=== PATIENT | female | born 1985 | race Hispanic/Latino ===

== ENCOUNTER 2024-07-01 20:24 | Emergency (ER) | payer BC ==
[2024-07-01] MEDS ORDERED: ONDANSETRON 4 MG/2 ML VIAL ONE (21:44)
[2024-07-01] MEDS ORDERED: MORPHINE 4 MG/ML SYR ONE (21:45)
[2024-07-01] MEDS ORDERED: NA CHLORIDE 0.9% 1,000 ML ONE (21:45)
[2024-07-01] MEDS ORDERED: KETOROLAC 30 MG/ML INJ ONE (21:45)
[2024-07-01 21:46] LABS: Absolute Basophils 0.1 K/uL (0-0.5); Absolute Eosinophils 0.2 K/uL (0-0.5); Absolute Lymphocytes (CBC) 2.1 K/uL (0.7-4.9); Absolute Monocytes 0.6 K/uL (0.1-1.3); Absolute Neutrophil 7.7 K/uL (1.8-8.0); Basophils % 1.3 % (0-1.3); Eosinophils % 1.8 % (0-4.4); Hematocrit 37.8 % (36.0-45.0); Lymphocytes % 19.3 % (15.3-44.8); MCH 31.1 pg (27.0-35.0); MCHC 34.4 g/dL (32.0-36.0); MCV 90.4 fL (80-100); MPV 7.8 fL (7.6-11.3); Monocytes % 5.6 % (3.3-12.3); Nucleated Red Blood Cells % 0.1 % (0-0); Platelets 310 thou/uL (152-406); RBC Red Blood Cell Count 4.19 M/uL (3.86-4.86); Red Cell Distribution Width 13.9 % (12.1-15.2)
[2024-07-01 22:00] LABS: Specific Gravity 1.009 (1.005-1.030)
[2024-07-01 22:01] LABS: Specific Gravity 1.009 (1.005-1.030); Sqamous Epithelial <5 /HPF (None Seen); Urine Bacteria <20 /HPF (<20); Urine Bilirubin NEGATIVE (Negative); Urine Blood Negative (Negative); Urine Clarity Turbid (Clear); Urine Color Colorless (Yellow); Urine Crystals Unidentified Few /HPF (None Seen); Urine Culture Reflex Order NOT NEEDED; Urine Glucose NEGATIVE (Negative); Urine Ketones NEGATIVE (Negative); Urine Micro Reflex YN NO BILL MICROSCOPIC; Urine Nitrite NEGATIVE (Negative); Urine Protein NEGATIVE (Negative); Urine RBC <5 /HPF (None Seen); Urine Urobilinogen Normal (Normal); Urine WBC <5 /HPF (<5); Urine WBC Clump Rare /HPF (None Seen); Urine Yeast (Budding) Trace /HPF (None Seen)
[2024-07-01 22:03] LABS: Albumin 3.4 g/dL (3.4-5.0); Albumin/Globulin Ratio 0.8 (1.1-1.8); Anion Gap 11.7 mEq/L (5.0-15.0); Bilirubin Total 0.3 mg/dL (0.2-1.0); Globulin 4.1 g/dL (2.3-3.5); Potassium 3.7 mEq/L (3.5-5.1); Protein, Total 7.5 g/dL (6.4-8.2)
--- NOTE | 2024-07-02 00:03 | RAD REPORT ---
EXAM: CT ABDOMEN AND PELVIS WITH CONTRAST DATE: 07/01/2024 9:38 PM FIRE OFFICER INDICATION: 38-year-old female with abdominal pain. COMPARISON: None. TECHNIQUE: CT of the abdomen and pelvis acquired following the intravenous administration of contrast . Please see technologist documentation of contrast type and dosage. Axial, coronal and sagittal images are provided. The study was performed using dose reduction techniques including automated expo sure control and/or adjustment of the MA and/or KV according to patient size, and/or iterative reconstruction techniques. DLP: 1163.8. CTDI: 20.084. FINDINGS: Lower thorax: No consolidation or pleural effusion. Partially visualized heart is normal in size. Liver, spleen, pancreas, adrenals: No acute lesion. Biliary tree: No intra- or extrahepatic bile duct dilation. Gallbladder: No calcified cholelithiasis or pericholecystic inflammation. Kidneys and ureters: 2 mm left renal interpolar region minor calyceal nonobstructing calculus. No lef t ureterolithiasis, right urolithiasis, or hydroureteronephrosis. Bladder/reproductive organs: Urinary bladder is partially decompressed. Retroverted uterus in situ. 2 .6 cm left ovarian cyst. No follow-up imaging is recommended. Reference: JACR 2019;17(2):248-254 Gastrointestinal tract: Lower esophagus/stomach/small bowel: Stomach is partially decompressed, limiting evaluation. No small bowel obstruction. Colon: Scattered colonic diverticula. Scattered nonspecific circumferential colonic mural thickening, with distal descending paracolic edematous and/or inflammatory stranding and small amount of left paracolic gutter fluid, which can be seen with acute diverticulitis. No abscess or bowel obstruction. Additional nonspecific mural thickening can be seen with colitis and inadequate distention. Mild to moderate retained colonic stool. Appendix: Normal diameter partially gas-filled appendix. Peritoneum, mesentery and retroperitoneum: No pneumoperitoneum or loculated fluid. Small amount of le ft paracolic gutter fluid and distal descending paracolic edematous and/or inflammatory stranding. Lymph nodes: Scattered subcentimeter in short axis dimension mesenteric, retroperitoneal, bilateral i nguinal lymph nodes. Vasculature: Aorta and branches: Aorta has a normal diameter. IVC and veins: IVC has a normal diameter. Incidental 3 mm right hemipelvic calcified phlebolith. Bones: Degenerative changes, including mild multilevel spondylosis. Bilateral L5 spondylolysis. Soft tissues: Very small umbilical hernia containing adipose tissue. IMPRESSION: 1. Acute distal descending colonic diverticulitis, with nonspecific mural thickening, paracolic gerard matous and/or inflammatory stranding, a small amount of left paracolic gutter fluid. Additional colonic diverticulosis and nonspecific colonic mural thickening. Correlation with nonemergent colonos copy suggested when the patient is beyond the acute episode. 2. Nonobstructing left nephrolithiasis. 3. Left ovarian 2.6 cm cyst. No follow-up imaging is recommended. 4. Additional incidental findings as discussed. Electronically signed by: Lexa Brandt MD 07/01/2024 11:31 PM [facility] Due to temporary technical issues with the [employer] reporting system, reports are being odessa d by the in-house radiologist without review as a courtesy to ensure prompt reporting the interpreting radiologist is fully responsible for the content of the report. Transcribed Date/Time: 07/02/2024 12:02 AM
[2024-07-02] MEDS ORDERED: CEFTRIAXONE 1000 MG/VIAL ONE (02:12)
[2024-07-02] MEDS ORDERED: CEPHALEXIN 250 MG CAP ONE (02:12)
[2024-07-02] MEDS ORDERED: metroNIDAZOLE 500 MG TABLET ONE (02:13)
[2024-07-02] MEDS ORDERED: NA CHLORIDE 0.9% 50 ML ONE (02:13)
[2024-07-02] MEDS ORDERED: IBUPROFEN 200 MG TAB PO ONE (02:25)
[2024-07-02] MEDS ORDERED: HYDROCODONE/APAP 5/325 MG TAB ONE (02:25)
--- NOTE | 2024-07-02 03:11 | EDPHYS ---
Physician Documentation [facility] Name: Gi Finn Age: 38 yrs Sex: Female : 1985 Arrival Date: 07/01/2024 Time: 20:24 Bed 6 Private MD: ED Physician Trey Do HPI: 07/01 20:42 This 38 yrs old Female presents to ER via Unassigned with complaints of sp4 Abdominal Pain, Left side abd pain. 07/02 21:32 Patient presents with left lower abdominal pain similar to prior episode of sp4 diverticulitis. Denies fever or vomiting.. 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 - Infectious Disease History:: Denies. - Social history:: Smoking status: Patient denies any tobacco usage or history of. Patient/guardian denies using alcohol, street drugs, IV drugs. - Family history:: not pertinent. ROS: 07/02 21:32 Constitutional: Negative for fever, chills, and weight loss, positive for left lower sp4 abdominal pain All other systems are negative, Exam: 21:32 Constitutional: This is a well developed, well nourished patient who is awake, alert, sp4 and in no acute distress. Head/Face: Normocephalic, atraumatic. Eyes: Pupils equal round and reactive to light, extra-ocular motions intact. Lids and lashes normal. Conjunctiva and sclera are not injected. Cornea within normal limits. Periorbital areas with no swelling, redness, or edema. ENT: Nares patent. No nasal discharge, no septal abnormalities noted. Tympanic membranes are normal and external auditory canals are clear. Oropharynx with no redness, swelling, or masses, exudates, or evidence of obstruction, uvula midline. Mucous membranes moist. Neck: Trachea midline, no thyromegaly or masses palpated, and no cervical lymphadenopathy. Supple, full range of motion without nuchal rigidity, or vertebral point tenderness. Chest/axilla: Normal chest wall appearance and motion. Nontender with no deformity. No lesions are appreciated. Cardiovascular: Regular rate and rhythm with a normal S1 and S2. No gallops, murmurs, or rubs. Normal PMI, no JVD. No pulse deficits. Respiratory: Lungs have equal breath sounds bilaterally, clear to auscultation and percussion. No rales, rhonchi or wheezes noted. No increased work of breathing, no retractions or nasal flaring. Abdomen/GI: Soft, with normal bowel sounds. No distension or tympany. No guarding or rebound. Positive left lower abdominal tenderness. Back: No spinal tenderness. No costovertebral tenderness. Skin: Warm, dry with normal turgor. Normal color with no rashes, no lesions, and no evidence of cellulitis. MS/ Extremity: Pulses equal, no cyanosis. Neurovascular intact. Full, normal range of motion. Neuro: Awake and alert, GCS 15, oriented to person, place, time, and situation. Cranial nerves II-XII grossly intact. Motor strength 5/5 in all extremities. Sensory grossly intact. Psych: Awake, alert, with orientation to person, place and time. Behavior, mood, and affect are within normal limits Vital Signs: 07/01 20:45 BP 142 / 99; Pulse 96; Resp 17; Temp 97.9; Pulse Ox 100% ; Weight 81.65 kg; Height 5 jj7 ft. 4 in. ; Pain 7/10; 21:55 BP 115 / 81; Pulse 102; Resp 14; Pulse Ox 100% ; vc1 07/02 00:00 BP 109 / 72; Pulse 91; Resp 15; Pulse Ox 99% ; vc1 01:00 BP 106 / 72; Pulse 91; Resp 15; Pulse Ox 98% ; vc1 02:00 BP 104 / 69; Pulse 92; Resp 16; Pulse Ox 98% ; vc1 03:43 BP 100 / 69; Pulse 86; Resp 14; Pulse Ox 97% ; vc1 07/01 20:45 Body Mass Index 30.90 (81.65 kg, 162.56 cm) [facility] 07/01 20:45 Pain Scale: Adult [facility] Brian Coma Score: 21:32 Eye Response: spontaneous(4). Motor Response: obeys commands(6). Verbal Response: sp4 oriented(5). Total: 15. MDM: 07/01 20:44 Medical Screening Exam initiated sp4 07/02 21:32 Differential diagnosis: diverticulitis, Dysmenorrhea, Endometriosis, gastritis. Data sp4 reviewed: vital signs, nurses notes, old medical records, lab test result(s), radiologic studies, CT scan. Consideration of Admission/Observation Escalation of care including admission/observation considered. ED course: CT revealed signs of diverticulitis without perforation or abscess. Patient stable for discharge home with 10-day course of antibiotics.. 07/01 20:44 Order name: Test, Urine; Complete Time: 02:00 sp4 07/01 20:44 Order name: Urinalysis W/Microscopic; Complete Time: 02:00 sp4 07/01 21:30 Order name: CBC with Diff; Complete Time: 02:00 sp4 07/01 21:30 Order name: CMP; Complete Time: 02:00 sp4 07/01 21:30 Order name: Lipase; Complete Time: 02:00 sp4 07/01 21:38 Order name: CT Abd/Pelvis - IV Contrast Only; Complete Time: 02:00 sp4 07/01 21:30 Order name: IV Saline Lock; Complete Time: 21:42 sp4 07/01 21:30 Order name: Labs collected and sent; Complete Time: 21:42 sp4 Administered Medications: 07/01 21:55 Drug: morphine IVP or IV 4 mg IVP once over 4 mins Route: IVP; Infused Over: 4 mins; vc1 Site: right antecubital; 22:15 Follow up: Response: No adverse reaction; Marked relief of symptoms vc1 21:55 Drug: Ketorolac IVP 30 mg IVP once Route: IVP; Site: right antecubital; vc1 22:15 Follow up: Response: No adverse reaction; Marked relief of symptoms; Pain is decreased vc1 21:55 Drug: Ondansetron IVP 4 mg IVP once; over 2 minutes Route: IVP; Site: right antecubital;vc1 07/02 02:27 Follow up: Response: No adverse reaction; Marked relief of symptoms vc1 07/01 21:55 Drug: NS 0.9% IV 1000 ml IV at 1 bolus Per protocol; to be given as a bolus over 60 vc1 minutes Route: IV; Rate: 1 bolus; Site: right antecubital; 22:55 Follow up: IV Status: Completed infusion; IV Intake: 1000ml vc1 07/02 02:20 Drug: Rocephin - Rocephin (cefTRIAXone) IVPB 1 grams IVPB once over 30 mins; (mix in 50 vc1 mL NS) Route: IVPB; Infused Over: 30 mins; Site: right antecubital; 02:50 Follow up: IV Status: Completed infusion; IV Intake: 50ml vc1 02:20 Drug: metroNIDAZOLE PO 500 mg PO once Route: PO; vc1 03:46 Follow up: Response: No adverse reaction vc1 02:27 Drug: HYDROcodone-acetaminophen PO 5 mg-325 mg 2 tabs PO once Route: PO; vc1 03:46 Follow up: Response: No adverse reaction; Marked relief of symptoms; Pain is decreased vc1 02:27 Drug: Ibuprofen PO 600 mg PO once Route: PO; vc1 03:46 Follow up: Response: No adverse reaction; Marked relief of symptoms; Pain is decreased vc1 02:30 Drug: Cephalexin PO 500 mg PO once Route: PO; vc1 03:00 Follow up: Response: No adverse reaction vc1 Disposition: 21:35 Chart complete. sp4 Disposition Summary: 07/02/24 03:10 Discharge Ordered Notes: Location: Home sp4 Problem: new sp4 Symptoms: have improved sp4 Condition: Stable sp4 Diagnosis - Diverticulitis of large intestine without perforation or abscess without bleeding sp4 - Acute diverticulitis of descending colon sp4 Followup: sp4 - With: Curtis Iglesias MD - When: 7 - 10 days - Reason: Recheck today's complaints Discharge Instructions: - Discharge Summary Sheet sp4 - Diverticulitis, Ingj[place] sp4 Forms: - Patient Portal Instructions sp4 Prescriptions: - Cephalexin 500 mg Oral capsule - take 1 capsule ORAL route every 8 hours for 10 days; 30 capsule; Refills: 0, sp4 Product Selection Permitted - Flagyl 500 mg Oral Tablet - take 1 tablet ORAL route every 8 hours for 10 days; 30 tablet; Refills: 0, sp4 Product Selection Permitted - Ibuprofen 800 mg Oral Tablet - take 1 tablet ORAL route every 8 hours As needed take with food; 30 tablet; sp4 Refills: 0, Product Selection Permitted - Tramadol 50 mg Oral tablet - take 1 tablet ORAL route every 8 hours as needed; 30 tablet; Refills: 0, sp4 Product Selection Permitted - ondansetron 8 mg Oral Tablet,disintegrating - take 1 tablet ORAL route every 8 hours PRN nausea; 30 tablet; Refills: 0, sp4 Product Selection Permitted Signatures: Dispatcher [employer] EDMS Maribel Charles RN RN vc1 Kelsie Duran RN RN jj7 Trey Do MD MD sp4 Corrections: (The following items were deleted from the chart) 07/01 21:39 21:39 Abdomen Pelvis W [id number].RAD.BRZ ordered. EDTX EDMS
--- NOTE | 2024-07-02 03:11 | ER ---
Nurse's Notes [facility] Name: Gi Finn Age: 38 yrs Sex: Female : 1985 Arrival Date: 07/01/2024 Time: 20:24 Bed 6 Private MD: Diagnosis: Diverticulitis of large intestine without perforation or abscess without bleeding;Acute diverticulitis of descending colon Presentation: 07/01 20:45 Chief complaint: Patient states: HX OF DIVERTICULITIS AND NOW HAVE ABD PAIN THAT jj7 STARTED THIS MORNING. NO N/V/D. Coronavirus screen: At this time, the client does not indicate any symptoms associated with coronavirus-19. Ebola Screen: No symptoms or risks identified at this time. Initial Sepsis Screen: Does the patient meet any 2 criteria? No. Patient's initial sepsis screen is negative. Does the patient have a suspected source of infection? No. Patient's initial sepsis screen is negative. Risk Assessment: Do you want to hurt yourself or someone else? Patient reports no desire to harm self or others. Onset of symptoms was July 01, 2024. 20:45 Method Of Arrival: Ambulatory [facility] 20:45 Acuity: SHA 3 jj7 Triage Assessment: 20:49 General: Appears in no apparent distress. comfortable, Behavior is calm, cooperative, jj7 appropriate for age. Pain: Complains of pain in left lower quadrant. GI: Reports lower abdominal pain, Patient currently denies diarrhea, nausea, vomiting. 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 - Infectious Disease History:: Denies. - Social history:: Smoking status: Patient denies any tobacco usage or history of. Patient/guardian denies using alcohol, street drugs, IV drugs. - Family history:: not pertinent. Screenin/07 00:11 [facility] ED Fall Risk Assessment (Adult) History of falling in the last 3 months, vc1 including since admission No falls in past 3 months (0 pts) Confusion or Disorientation No (0 pts) Intoxicated or Sedated No (0 pts) Impaired Gait No (0 pts) Mobility Assist Device Used No (0 pt) Altered Elimination No (0 pt) Score/Fall Risk Level 0 - 2 = Low Risk Oriented to surroundings, Maintained a safe environment, Educated pt \T\ family on fall prevention, incl call for assistance when getting out of bed. Abuse screen: Denies threats or abuse. Nutritional screening: No deficits noted. Tuberculosis screening: No symptoms or risk factors identified. Assessment: 00:12 Reassessment: Patient and/or family updated on plan of care and expected duration. Pain vc1 level reassessed. Patient is alert, oriented x 3, equal unlabored respirations, skin warm/dry/pink. Patient states feeling better. Patient states symptoms have improved. 02:02 Reassessment: Patient appears in no apparent distress at this time. No changes from vc1 previously documented assessment. Patient and/or family updated on plan of care and expected duration. Pain level reassessed. Patient is alert, oriented x 3, equal unlabored respirations, skin warm/dry/pink. 03:43 Reassessment: Patient appears in no apparent distress at this time. No changes from vc1 previously documented assessment. Patient and/or family updated on plan of care and expected duration. Pain level reassessed. Patient is alert, oriented x 3, equal unlabored respirations, skin warm/dry/pink. Vital Signs: 07/01 20:45 BP 142 / 99; Pulse 96; Resp 17; Temp 97.9; Pulse Ox 100% ; Weight 81.65 kg; Height 5 jj7 ft. 4 in. ; Pain 7/10; 21:55 BP 115 / 81; Pulse 102; Resp 14; Pulse Ox 100% ; vc1 07/02 00:00 BP 109 / 72; Pulse 91; Resp 15; Pulse Ox 99% ; vc1 01:00 BP 106 / 72; Pulse 91; Resp 15; Pulse Ox 98% ; vc1 02:00 BP 104 / 69; Pulse 92; Resp 16; Pulse Ox 98% ; vc1 03:43 BP 100 / 69; Pulse 86; Resp 14; Pulse Ox 97% ; vc1 07/01 20:45 Body Mass Index 30.90 (81.65 kg, 162.56 cm) [facility] 07/01 20:45 Pain Scale: Adult jj7 Brian Coma Score: 21:32 Eye Response: spontaneous(4). Motor Response: obeys commands(6). Verbal Response: sp4 oriented(5). Total: 15. ED Course: 07/01 20:30 Patient arrived in ED. gm2 20:42 Trey Do MD is Attending Physician. sp4 20:49 Triage completed. j7 20:49 Arm band placed on right wrist. jj7 21:30 Patient has correct armband on for positive identification. Placed in gown. Bed in low vc1 position. Side rails up X2. school lunch monitor on. Pulse ox on. NIBP on. 21:41 Inserted saline lock: 20 gauge in right antecubital area, using aseptic technique. vc1 Blood collected. 21:42 Maribel Charles, RN is Primary Nurse. vc1 21:42 CBC with Diff Sent. vc1 21:42 CMP Sent. vc1 21:42 Lipase Sent. vc1 21:43 Radiology exam delayed due to test not completed at this time. sj 21:55 Urinalysis W/Microscopic Sent. vc1 21:55 Test, Urine Sent. vc1 22:34 CT Abd/Pelvis - IV Contrast Only In Process Unspecified. EDMS 07/02 03:09 Curtis Iglesias MD is Referral Physician. sp4 03:44 Provided Education on: f/u with PCP. vc1 03:44 No provider procedures requiring assistance completed. IV discontinued, intact, vc1 bleeding controlled, No redness/swelling at site. Pressure dressing applied. Administered Medications: 07/01 21:55 Drug: morphine IVP or IV 4 mg IVP once over 4 mins Route: IVP; Infused Over: 4 mins; vc1 Site: right antecubital; 22:15 Follow up: Response: No adverse reaction; Marked relief of symptoms vc1 21:55 Drug: Ketorolac IVP 30 mg IVP once Route: IVP; Site: right antecubital; vc1 22:15 Follow up: Response: No adverse reaction; Marked relief of symptoms; Pain is decreased vc1 21:55 Drug: Ondansetron IVP 4 mg IVP once; over 2 minutes Route: IVP; Site: right antecubital;vc1 07/02 02:27 Follow up: Response: No adverse reaction; Marked relief of symptoms vc1 07/01 21:55 Drug: NS 0.9% IV 1000 ml IV at 1 bolus Per protocol; to be given as a bolus over 60 vc1 minutes Route: IV; Rate: 1 bolus; Site: right antecubital; 22:55 Follow up: IV Status: Completed infusion; IV Intake: 1000ml vc1 07/02 02:20 Drug: Rocephin - Rocephin (cefTRIAXone) IVPB 1 grams IVPB once over 30 mins; (mix in 50 vc1 mL NS) Route: IVPB; Infused Over: 30 mins; Site: right antecubital; 02:50 Follow up: IV Status: Completed infusion; IV Intake: 50ml vc1 02:20 Drug: metroNIDAZOLE PO 500 mg PO once Route: PO; vc1 03:46 Follow up: Response: No adverse reaction vc1 02:27 Drug: HYDROcodone-acetaminophen PO 5 mg-325 mg 2 tabs PO once Route: PO; vc1 03:46 Follow up: Response: No adverse reaction; Marked relief of symptoms; Pain is decreased vc1 02:27 Drug: Ibuprofen PO 600 mg PO once Route: PO; vc1 03:46 Follow up: Response: No adverse reaction; Marked relief of symptoms; Pain is decreased vc1 02:30 Drug: Cephalexin PO 500 mg PO once Route: PO; vc1 03:00 Follow up: Response: No adverse reaction vc1 Medication: 00:12 VIS not applicable for this client. vc1 Intake: 07/01 22:55 IV: 1000ml; Total: 1000ml. vc1 07/02 02:50 IV: 50ml; Total: 1050ml. vc1 Outcome: 03:10 Discharge ordered by MD. felix 03:44 Discharged to home ambulatory, vc1 03:44 Condition: stable 03:44 Discharge instructions given to patient, Instructed on discharge instructions, follow up and referral plans. medication usage, Demonstrated understanding of instructions, follow-up care, medications, Prescriptions given X 4, 03:45 Patient left the ED. vc1 Signatures: Dispatcher [employer] Yolanda Romano Vanessa, RN RN vc1 Kelsie Duran RN RN jj7 Trey Do MD MD sp4 [place], Ginger [facility]
[2024-07-02 03:59] VITALS: TEMP 97.9
[2024-07-02 04:14] VITALS: BP 100/69; O2SAT 97
== END 2024-07-02 03:45 | disposition home or self-care (01) ==
LOC: ER 20:24
DX: K57.32 Diverticulitis of large intestine without perforation or abscess without bleeding (principal)
CPT/HCPCS: 96365; 96361; 85025; 81001; 36415; 81025; 83690; 80053; 74177; 96375; 99285; Q9967; J2405; J7030; J0696